=== PATIENT | female | born 1945 | race Caucasian/White ===

== ENCOUNTER 2017-12-24 15:58 | Inpatient (IN) | payer MEDICARE ==
[~2017-12-24] VITALS: Ht 152.4 cm; Wt 59.9 kg
[~2017-12-24 15:58] MED LIST: ACET500 PO; ALBU90OI61 INH; AMLO10 PO; ATEN50 PO; CEFP200 PO; CELE200 PO; Coumadin5 MG PO; ESCI10; ESCI10 PO; FLUSAL2505 INH; HEPARIN 1,1000 UNIT/ SC; IBUP800 PO; LISI20 PO; LOVA40 PO; MAGOXI400 PO; METF500 PO; METO25ER PO; MULVIT PO; OMEG1CAP30 PO
[2017-12-24 16:34] LABS: BASOPHILS ABSOLUTE AUTO 0.05 K/mm3 (0.00-0.23); BASOPHILS PERCENT AUTO 1 % (0-2); Hematocrit 36.2 % (33.0-51.0); LYMPHOCYTES ABSOLUTE AUTO 0.56 K/mm3 (0.84-5.20); LYMPHOCYTES PERCENT AUTO 9 % (21-46); MONOCYTES ABSOLUTE AUTO 0.35 K/mm3 (0.16-1.47); MONOCYTES PERCENT AUTO 6 % (4-13); Mean Corpuscular HGB 31.1 pg (26.0-34.0); Mean Corpuscular HGB Conc 33.1 g/dL (31.5-36.5); Mean Corpuscular Volume 94 fL (80-100); Mean Platelet Volume 9.9 fL (9.1-12.4); Platelet Count 314 K/mm3 (150-400); RDW Coefficient Variation 12.8 % (11.7-14.2); Red Blood Cell Count 3.86 M/mm3 (3.80-5.20); White Blood Cell Count 6.06 K/mm3 (4.00-11.30)
[2017-12-24 16:38] LABS: EOSINOPHILS PERCENT AUTO 0 % (0-6); IMMATURE GRAN ABSOLUTE AUTO 0.04 K/mm3 (0.00-0.10); IMMATURE GRAN PERCENT AUTO 1 % (0-1); NEUTROPHILS ABSOLUTE AUTO 5.06 K/mm3 (1.96-9.15); NEUTROPHILS PERCENT AUTO 84 % (41-73)
[2017-12-24 16:39] LABS: Base Excess Venous -12.8 mmol/L; Bicarbonate Venous 15.5 mmol/L (24.0-30.0); PCO2 Venous 31.1 mmHg (38-42); PO2 Venous 158 mmHg (38-42)
[2017-12-24 16:40] LABS: pH Blood Venous 7.27 (7.34-7.37)
[2017-12-24 16:46] LABS: International Normalized Ratio 1.16; Prothrombin Time Results 12.1 Sec (9.7-11.5)
[2017-12-24] MEDS ORDERED: CALC.25 PO (16:49)
[2017-12-24] MEDS ORDERED: Ferrous Sulfat325 MG PO (16:50)
[2017-12-24] MEDS ORDERED: Omeprazole20 M1 PO (16:50)
[2017-12-24 17:35] LABS: Alanine Aminotransfer (ALT/SGP 12 U/L (12-78); Albumin, Blood 2.9 g/dL (3.4-5.0); Albumin/Globulin Ratio 0.6 (0.8-1.8); Alk Phos 296 U/L (50-136); Anion Gap 16 mmol/L (6-16); Aspartate Aminotrans (AST/SGOT 26 U/L (12-37); Bilirubin, Total 0.7 mg/dL (0.1-1.0); Blood Urea Nitrogen 79 mg/dL (8-24); Bun/Creatinine Ratio 32.1 (12.0-20.0); CO2, Blood 15 mmol/L (21-32); Calcium, Blood 9.3 mg/dL (8.5-10.1); Chloride, Blood 106 mmol/L (98-108); Creatinine, Blood 2.46 mg/dL (0.40-1.00); Glomerular Filtration Rate 20 (60-); Glucose, Blood 186 mg/dL (70-99); Magnesium, Blood 2.5 mg/dL (1.6-2.4); Potassium, Blood 5.7 mmol/L (3.5-5.5); Sodium, Blood 137 mmol/L (136-145); Total Protein, Blood 7.9 g/dL (6.4-8.2); Troponin I <0.015 ng/mL (0.000-0.040)
[2017-12-24 21:50] LABS: Source, Urine Catheter
[2017-12-24 21:56] LABS: Bilirubin, Urine Neg (Neg); Blood, Urine 3+ (Neg); Glucose Qualitative, Urine Neg (Neg); Ketones, Urine Neg (Neg); Leukocyte Esterase, Urine 3+ (Neg); Nitrite, Urine Neg (Neg); Protein, Urine 2+ (Neg); Urobilinogen, Urine 1+ (Normal); pH, Urine 6.5 (5.0-8.0)
[2017-12-24 22:08] LABS: Appearance, Urine Cloudy (Clear); Color, Urine Yellow (P-Yellow)
[2017-12-24 22:09] LABS: Amorphous Mod (0-Heavy); Bacteria Many /hpf; Red Blood Cells, Urine 0-2 /hpf (0-2); Squamous Epithelial Cells Not Seen /hpf (Few); White Blood Cells, Urine 25-50 /hpf (0-5)
[2017-12-24 22:21] LABS: U Amphetamine Screen Not Detected; U Barbituate Screen Not Detected; U Benzodiazapine Screen Not Detected; U Buprenorphine Screen Not Detected; U Cannabinoids Screen Not Detected; U Cocaine Screen Not Detected; U Methadone Screen Not Detected; U Methamphetamine Screen Not Detected; U Opiates Screen DETECTED; U Oxycodone Screen DETECTED; U Phencyclidine Screen Not Detected; U Propoxyphene Screen Not Detected
[2017-12-25 04:52] LABS: Hematocrit 40.2 % (33.0-51.0); Hemoglobin 13.3 g/dL (11.5-16.0); Mean Corpuscular HGB 31.5 pg (26.0-34.0); Mean Corpuscular HGB Conc 33.1 g/dL (31.5-36.5); Mean Corpuscular Volume 95 fL (80-100); Platelet Count 238 K/mm3 (150-400); RDW Coefficient Variation 12.9 % (11.7-14.2); Red Blood Cell Count 4.22 M/mm3 (3.80-5.20); White Blood Cell Count 8.09 K/mm3 (4.00-11.30)
[2017-12-25 05:19] LABS: Creatinine, Blood 2.62 mg/dL (0.40-1.00); Potassium, Blood 5.7 mmol/L (3.5-5.5)
[2017-12-25 05:22] LABS: BAND PERCENT MAN 56 % (0-8); BASOPHILS PERCENT MAN 0 % (0-2); EOSINOPHILS PERCENT MAN 0 % (0-6); LYMPHOCYTES % ATYPICAL MANUAL 1 % (0-0); LYMPHOCYTES ABSOLUTE MAN 0.64 K/mm3 (0.84-5.20); LYMPHOCYTES PERCENT MAN 7 % (21-46); METAMYELOCYTE PERCENT MAN 5 % (0-0); MONOCYTES PERCENT MAN 5 % (4-13); MYELOCYTE ABSOLUTE MAN 0.08 K/mm3 (0.00-0.00); MYELOCYTE PERCENT MAN 1 % (0-0); NEUTROPHILS ABSOLUTE MAN 6.55 K/mm3 (1.96-9.15); SEG NEUTROPHILS PERCENT MAN 25 % (41-73); TOTAL CELLS COUNTED 100
[2017-12-25 06:52] LABS: PO2 Arterial 250 mmHg (80-100); pH Blood Arterial 7.35 (7.35-7.45)
[2017-12-25 07:00] LABS: Calcium, Ionized (POC) 1.67 mmol/L (1.10-1.46); Chloride (POC) 120 mmol/L (98-108); Creatinine (POC) 3.1 mg/dL (0.6-1.0); Glucose (ISTAT POC) 40 mg/dL (70-99); Hemoglobin (POC) 9.2 g/dL (12.0-16.0); Potassium (POC) 7.7 mmol/L (3.5-5.5); Sodium (POC) 146 mmol/L (135-148); Total CO2 (POC) 24 mmol/L (21-32)
[2017-12-25 10:18] LABS: Bun/Creatinine Ratio 35.5 (12.0-20.0); Calcium, Blood 8.4 mg/dL (8.5-10.1); Creatinine, Blood 2.62 mg/dL (0.40-1.00); Potassium, Blood 7.3 mmol/L (3.5-5.5)
[2017-12-25 13:22] LABS: Albumin, Blood 1.8 g/dL (3.4-5.0); Anion Gap 14 mmol/L (6-16); Blood Urea Nitrogen 93 mg/dL (8-24); Bun/Creatinine Ratio 37.2 (12.0-20.0); CO2, Blood 14 mmol/L (21-32); Calcium, Blood 7.4 mg/dL (8.5-10.1); Chloride, Blood 113 mmol/L (98-108); Glomerular Filtration Rate 20 (60-); Glucose, Blood 199 mg/dL (70-99); Potassium, Blood 7.3 mmol/L (3.5-5.5); Sodium, Blood 141 mmol/L (136-145)
[2017-12-25 13:48] LABS: Phosphorus, Blood 10.5 mg/dL (2.5-4.9)
[2017-12-25 18:22] LABS: Albumin, Blood 1.5 g/dL (3.4-5.0); Anion Gap 21 mmol/L (6-16); Blood Urea Nitrogen 75 mg/dL (8-24); Bun/Creatinine Ratio 33.2 (12.0-20.0); CO2, Blood 10 mmol/L (21-32); Calcium, Blood 6.8 mg/dL (8.5-10.1); Chloride, Blood 114 mmol/L (98-108); Creatinine, Blood 2.26 mg/dL (0.40-1.00); Glomerular Filtration Rate 23 (60-); Glucose, Blood 221 mg/dL (70-99); Potassium, Blood 7.2 mmol/L (3.5-5.5); Sodium, Blood 145 mmol/L (136-145)
[2017-12-25 18:41] LABS: Phosphorus, Blood >9.0 mg/dL (2.5-4.9)
== END 2017-12-25 18:40 | DRG 871 ==
LOC: ER 15:58 → PCU 15:59 → ICUW 18:46 → PCU 18:46 → ICUW 20:59
PROVIDERS: Emergency Medicine; Hospitalist; Internal Medicine Critical Care Medicine
PROC: 5A1935Z Respiratory Ventilation, Less than 24 Consecutive Hours (ICD-10-PCS; principal; 2017-12-25)
PROC: 0BH17EZ Insertion of Endotracheal Airway into Trachea, Via Natural or Artificial Opening (ICD-10-PCS; 2017-12-25)
PROC: 5A12012 Performance of Cardiac Output, Single, Manual (ICD-10-PCS; 2017-12-25)
DX: A41.9 Sepsis, unspecified organism (principal); J96.01 Acute respiratory failure with hypoxia; N17.9 Acute kidney failure, unspecified; K57.80 Diverticulitis of intestine, part unspecified, with perforation and abscess without bleeding; R57.9 Shock, unspecified; E87.4 Mixed disorder of acid-base balance; R65.20 Severe sepsis without septic shock; Z51.5 Encounter for palliative care; I46.9 Cardiac arrest, cause unspecified; I48.91 Unspecified atrial fibrillation; E87.5 Hyperkalemia; J44.9 Chronic obstructive pulmonary disease, unspecified
CPT/HCPCS: 31720; 36415; 36569; 36600; 51702; 70450; 71045; 74176; 80047; 80048; 80053; 80069; 81001; 82803; 82947; 83605; 83735; 83880; 84443; 84484; 85014; 85025; 85379; 85610; 87077; 87086; 87186; 93005; 93010; 94002; 94660; 96361; 96374; 99285; C1751; C8929; J0171; J0295; J0610; J1170; J1815; J1940; J2543; J3010; J7030; J7060; J7070; P9041; Q9957